=== PATIENT | male | born 1990 | race Caucasian/White ===

== ENCOUNTER 2016-11-14 16:14 | Emergency (ER) | payer SELFPAY ==
[~2016-11-14] VITALS: Ht 177.8 cm; Wt 68.2 kg
[2016-11-14] MEDS ORDERED: ACET-66 PO (16:18)
[2016-11-14 17:36] VITALS: BP 145/92
[2016-11-14] MEDS ORDERED: PredniSONE 5 MG/5 ML SOLUTION UDCUP PO ONE (18:00)
[2016-11-14] MEDS ORDERED: PENICILLIN G BENZATHINE LA 1,200,000 UNITS/2 ML SYRINGE IM ONE (18:15)
== END 2016-11-14 18:39 | disposition home or self-care (01) ==
LOC: EMS 16:15
DX: J02.0 Streptococcal pharyngitis (principal); F12.90 Cannabis use, unspecified, uncomplicated
CPT/HCPCS: 36415; 86308; 96372; 99283; J0561